=== PATIENT | male | born 1950 | race Caucasian/White ===

== ENCOUNTER 2016-08-24 11:01 | Inpatient (IN) | payer MEDICARE, OTHER ==
[~2016-08-24] VITALS: Ht 180.3 cm; Wt 126.2 kg
[2016-08-24] MEDS ORDERED: MECLIZINE 25 MG TABLET PO ONE (11:30)
[2016-08-24] MEDS ORDERED: IV NORMAL SALINE 500ML 500 ML IV ONE (11:45)
[2016-08-24 12:06] LABS: BASO # 0.1 x10^3/uL (0.0-0.2); BASO % 2 % (0-3); EOS # 0.2 x10^3/uL (0.0-0.7); EOS % 3 % (0-3); HEMATOCRIT 44.2 % (39.0-53.0); LYMPH # 1.7 x10^3/uL (1.0-4.8); LYMPH % 25 % (24-48); MEAN CORPUSCULAR HEMOGLOBIN 31 pg (25-35); MEAN CORPUSCULAR HGB CONC 34 g/dL (31-37); MEAN CORPUSCULAR VOLUME 90 fL (79-100); MONO # 0.5 x10^3/uL (0.0-1.1); MONO % 7 % (0-9); NEUT # 4.2 x10^3uL (1.8-7.7); NEUT % 62 % (31-73); PLATELET COUNT 240 x10^3/uL (140-400); RED CELL DISTRIBUTION WIDTH 13.5 % (11.5-14.5); WHITE BLOOD COUNT 6.9 x10^3/uL (4.0-11.0)
[2016-08-24 12:13] LABS: ALBUMIN 3.7 g/dL (3.4-5.0); CREATININE 1.1 mg/dL (0.7-1.3); GFR 67.2; TOTAL BILIRUBIN 0.5 mg/dL (0.2-1.0)
[2016-08-24 12:14] LABS: DIRECT BILIRUBIN 0.1 mg/dL (0.0-0.2)
--- NOTE | 2016-08-24 12:32 | RAD ---
Indication: Dizziness. Time of exam 12:27 PM Comparison is made with prior chest from 02/19/2015. FINDINGS: The heart size is normal. The lungs are clear. No pleural effusion or pneumothorax is identified. The pulmonary vascularity is normal. IMPRESSION: No acute abnormality detected.
--- NOTE | 2016-08-24 13:18 | EKG ---
[address] [address] Test Date: 2016-08-24 Test Time: 12:01:41 Pat Name: TERI PETTY Department: Room: Gender: M [employer]izer: RDAHA : 1950 Requested By: ELEAZAR COREY Order Number: [id number] Reading MD: Paresh Brandon Measurements Intervals [place] Rate: 66 P: 45 UT: 206 QRS: 73 QRSD: 96 T: 26 QT: 446 QTc: 469 Interpretive Statements SINUS RHYTHM Electronically Signed On 08-30-2016 9:08:03 CDT by Paresh Brandon
--- NOTE | 2016-08-24 13:19 | PHYS DOC ---
Adult General Chief Complaint Chief Complaint: NAUSEA/VOMITING/DIARRHEA HPI HPI 66-year-old male presenting to the emergency department after reported feeling lightheaded and vertiginous while he was sitting in the chair earlier this morning around 8:00. He reports it happened all of a sudden. His was there with him and she stated that he appeared to be diaphoretic and pale. This lasted approximately 2-3 minutes and then he began to feel better. Afterwards he did notice some vertigo with changes of movement. He reports having a history of a "arrhythmia". He does not remember what the condition was called. He denies a headache or numbness weakness or tingling. He denies facial droop or weakness of his extremities. He denies vision changes. Review of systems is negative for shortness of breath chest pain off the patient 's abdominal pain. He denies fevers or chills. All other review of systems is negative unless otherwise noted in history of present illness. Review of Systems Review of Systems SEE ABOVE. Current Medications Current Medications Current Medications Medications (Trade) Dose Ordered Sig/Silas Start Time Stop Time Status Last Admin Dose Admin Meclizine HCl (Antivert) 25 mg 1X ONCE 08/24/16 11:30 08/24/16 12:11 DC 08/24/16 12:15 25 MG Sodium Chloride 500 ml @ 0 mls/hr 1X ONCE 08/24/16 11:45 08/24/16 12:11 DC 08/24/16 12:15 500 MLS/HR Allergies Allergies Allergies Coded Allergies Type Severity Reaction Last Updated Verified No Known Drug Allergies 08/24/16 No Physical Exam Physical Exam Constitutional: Well developed, well nourished, no acute distress, non-toxic appearance. HENT: Normocephalic, atraumatic, bilateral external ears normal, oropharynx moist, no oral exudates, nose normal. [] Eyes: PERRLA, EOMI, conjunctiva normal, no discharge. Neck: Normal range of motion, no tenderness, supple, no stridor. Cardiovascular:Heart rate regular rhythm, no murmur [] Lungs & Thorax: Bilateral breath sounds clear to auscultation Abdomen: Bowel sounds normal, soft, no tenderness, no masses, no pulsatile masses. Skin: Warm, dry, no erythema, no rash. [] Back: No tenderness, no CVA tenderness. Extremities: No tenderness, no cyanosis, no clubbing, ROM intact, no edema. [] Neurologic: Alert and oriented X 3, normal motor function, normal sensory function, no focal deficits noted. Psychologic: Affect normal, judgement normal, mood normal. [] Current Patient Data Lab Results Laboratory Tests Test 08/24/16 11:48 White Blood Count 6.9 x10^3/uL (4.0-11.0) Red Blood Count 4.90 x10^6/uL (4.30-5.70) Hemoglobin 15.0 g/dL (13.0-17.5) Hematocrit 44.2 % (39.0-53.0) Mean Corpuscular Volume 90 fL (79-100) Mean Corpuscular Hemoglobin 31 pg (25-35) Mean Corpuscular Hemoglobin Concent 34 g/dL (31-37) Red Cell Distribution Width 13.5 % (11.5-14.5) Platelet Count 240 x10^3/uL (140-400) Neutrophils (%) (Auto) 62 % (31-73) Lymphocytes (%) (Auto) 25 % (24-48) Monocytes (%) (Auto) 7 % (0-9) Eosinophils (%) (Auto) 3 % (0-3) Basophils (%) (Auto) 2 % (0-3) Neutrophils # (Auto) 4.2 x10^3uL (1.8-7.7) Lymphocytes # (Auto) 1.7 x10^3/uL (1.0-4.8) Monocytes # (Auto) 0.5 x10^3/uL (0.0-1.1) Eosinophils # (Auto) 0.2 x10^3/uL (0.0-0.7) Basophils # (Auto) 0.1 x10^3/uL (0.0-0.2) Sodium Level 140 mmol/L (136-145) Potassium Level 4.0 mmol/L (3.5-5.1) Chloride Level 105 mmol/L (98-107) Carbon Dioxide Level 28 mmol/L (21-32) Anion Gap 7 (6-14) Blood Urea Nitrogen 23 mg/dL (8-26) Creatinine 1.1 mg/dL (0.7-1.3) Estimated GFR (Cockcroft-Gault) 67.2 Glucose Level 166 mg/dL (70-99) H Lactic Acid Level 2.1 mmol/L (0.4-2.0) H Calcium Level 9.0 mg/dL (8.5-10.1) Total Bilirubin 0.5 mg/dL (0.2-1.0) Direct Bilirubin 0.1 mg/dL (0.0-0.2) Aspartate Amino Transferase (AST) 25 U/L (15-37) Alanine Aminotransferase (ALT) 35 U/L (16-63) Alkaline Phosphatase 96 U/L (46-116) Troponin I Quantitative < 0.017 ng/mL (0-0.055) Total Protein 8.0 g/dL (6.4-8.2) Albumin 3.7 g/dL (3.4-5.0) Lipase 146 U/L (73-393) EKG EKG [] Radiology/Procedures Radiology/Procedures [] Course & Med Decision Making Course & Med Decision Making Pertinent Labs and Imaging studies reviewed. (See chart for details) [] 66-year-old gentleman presenting to the emergency department with a sudden episode of lightheadedness and vertigo with diaphoresis and pallor witnessed by his . He spontaneously began to feel better and then presenting to our emergency department fairly asymptomatic. Currently he denies any pain and he denied any pain during the episode. Initial vital signs show that he was mildly hypertensive however he was vomiting during that episode. His blood pressure improved without intervention in the emergency department. IV established. Saline given. EKG, Mildly prolonged [place] interval. Otherwise ST segments congruent. Chest x-ray unremarkable. Blood work showed a mildly elevated lactic acidosis. The patient currently does not have clinical signs of infection so this is likely related to his event. Otherwise troponin negative and the remainder is blood work was largely unremarkable. Given the history of arrhythmia and the suddenness of the event, the patient was admitted for telemetry monitoring and further evaluation workup and care. Dragon Disclaimer Dragon Disclaimer This chart was dictated in whole or in part using Voice Recognition software in a busy, high-work load, and often noisy Emergency Department environment. It may contain unintended and wholly unrecognized errors or omissions. Departure Departure: Impression: Primary Impression: Nausea Additional Impressions: Dizziness Lightheadedness Diaphoresis Disposition: ADMITTED INPATIENT Admitting Physician: Balaji, Ahmed Condition: STABLE Referrals: RANDY AVELAR MD (PCP) Problem Qualifiers ELEAZAR COREY MD August 24, 2016 13:19
--- NOTE | 2016-08-24 14:23 | ACF ---
Admission Criteria Forms Admission Criteria Met?: No ABELARDO KOVACS August 24, 2016 14:23 ELEAZAR COREY MD August 29, 2016 18:32
[2016-08-24] MEDS ORDERED: ONDANSETRON PF 4 MG/2 ML VIAL. IV PRN (14:30)
[2016-08-24] MEDS ORDERED: MORPHINE SULFATE 2 MG/ML DISP.SYRIN. IV PRN (14:30)
[2016-08-24 14:55] VITALS: BP 143/71
[2016-08-24 15:39] VITALS: BP 143/71
[2016-08-24 17:36] LABS: CLARITY,URINE CLEAR; COLOR,URINE YELLOW
[2016-08-24 17:37] LABS: BACTERIA,URINE 0 /HPF (0-FEW); BILIRUBIN,URINE NEG (NEG); GLUCOSE,URINE NEG (NEG); NITRITE,URINE NEG (NEG); RBC,URINE 0 /HPF (0-2); SQUAMOUS EPITHELIAL CELL,UR OCC /LPF; UROBILINOGEN,URINE 0.2 mg/dL (0.2 mg/dL); WBC,URINE OCC /HPF (0-4)
[2016-08-24 17:41] VITALS: BP 132/62
--- NOTE | 2016-08-24 19:32 | HP ---
ADMIT DATE: 08/24/2016 HISTORY OF PRESENT ILLNESS: The patient is a 66-year-old male patient, who came to the Emergency Room complaining of feeling lightheaded and vertiginous while he was sitting in the chair earlier this morning around 8 a.m. The worst happened all of a sudden. His was there with him. She stated that he appeared to be diaphoretic and pale. This lasted approximately 2-3 minutes and then he began to feel better. Afterwards, she did notice some vertigo with change in movement. He reports having history of arrhythmia. He does not remember what the condition was called. He denies any headache, numbness, weakness, or tingling or any facial droop or weakness in extremities. Denied any vision change. He was investigated in the Emergency Room. His lab work initially showed slightly elevated lactic acid. His chest x-ray was unremarkable, and a decision was made to admit him to the ICU to monitor his heart closely and consult the cardiology as well as the Neurology team. PAST MEDICAL HISTORY: Essentially unremarkable. PAST SURGICAL HISTORY: Remarkable only for colonoscopy. ALLERGIES: He has no known drug allergies. MEDICATIONS: He is currently on multivitamins. He is not on any prescription medication. FAMILY HISTORY: He has one older brother and older sisters that are healthy, one younger sister with breast cancer. His father at age of 77 because of leukemia. His mother at age of 91, but she does have a history of colon cancer. SOCIAL HISTORY: He is apparently single, lives with his significant other. He does not smoke, drink alcohol, or use recreational drugs. He is currently retired. REVIEW OF SYSTEMS: The patient denied any blurring of vision, cataract, glaucoma, or macular degeneration. Denied any earache, tinnitus, or sensorineural deafness. Denied any nosebleeds, stuffy nose, or postnasal drip. Denied any sore throat, sore tongue, toothache, hoarseness of voice, or difficulty swallowing. Denied any definitive nauseous and no vomiting. Denied any diarrhea or constipation. Denied any hematemesis, melena, or hematochezia. Denied any dysuria, frequency, or hematuria. Denied any chest pain, shortness of breath, orthopnea, or paroxysmal nocturnal dyspnea. Denied any cough, phlegm, or hemoptysis. Did complain of dizziness and lightheadedness as well as vertigo. PHYSICAL EXAMINATION: GENERAL: On examining him, he looked well and was clearly in no apparent respiratory distress, slightly pale, but no jaundice, cyanosis, or thyromegaly. No jugular venous distention. No limb edema. VITAL SIGNS: His heart rate was 66, blood pressure 143/71, temperature was 98.7, respiratory rate was 20, and oxygen saturation was 99%. HEAD, EYES, EARS, NOSE, THROAT: Showed normocephalic, atraumatic. NECK: Supple. HEART: Showed normal first and second heart sounds. No gallop, rub, or murmur. CHEST: Clear to auscultation. No crepitation or rhonchi. ABDOMEN: Distended. soft, nontender. No guarding or rigidity. No organomegaly. Hernial orifices intact. Bowel sounds normal. NEUROLOGIC: He was awake, alert, responding appropriately. Cranial nerves intact. EXTREMITIES: He moves extremities without difficulty. He has definitely no nystagmus. LABORATORY DATA: Showed a white cell count of 6900, hemoglobin 15, hematocrit 44, MCV 90 and platelet count 240,000. Serum sodium 140, potassium 4, chloride 105, bicarbonate 28, anion gap of 7, BUN 23, creatinine 1.1. Estimated GFR was 67 mL per minute, his glucose was 66, lactic acid was 2.1, calcium was 9. Total bilirubin, AST, ALT, alkaline phosphatase were normal. His total protein was 8, albumin was 3.7, lipase 146. His first set of cardiac enzymes show troponin to be less than 0.017. His EKG showed mildly prolonged [place] interval, otherwise ST segment congruent. His chest x-ray showed that the heart size is normal. The lungs are clear. No pleural effusion or pneumothorax identified. The pulmonary vascularity is normal. PLAN: To do 2 more sets of cardiac enzymes. Check fasting lipid profile tomorrow. Consult the cardiology given history of arrhythmia and also Dr. Perez for possible acute labyrinthitis versus benign positional vertigo. JAVID CULP MD DR: CARLOS/iona JOB#: [id number] / [id number]
[2016-08-24 19:33] VITALS: BP 102/62
[2016-08-25 02:00] VITALS: BP 106/55
[2016-08-25 02:10] LABS: BASO # 0.1 x10^3/uL (0.0-0.2); BASO % 1 % (0-3); EOS # 0.2 x10^3/uL (0.0-0.7); EOS % 3 % (0-3); HEMATOCRIT 40.5 % (39.0-53.0); HEMOGLOBIN 13.9 g/dL (13.0-17.5); LYMPH # 2.7 x10^3/uL (1.0-4.8); LYMPH % 32 % (24-48); MEAN CORPUSCULAR HEMOGLOBIN 31 pg (25-35); MEAN CORPUSCULAR HGB CONC 34 g/dL (31-37); MEAN CORPUSCULAR VOLUME 89 fL (79-100); MONO # 0.7 x10^3/uL (0.0-1.1); MONO % 9 % (0-9); NEUT # 4.7 x10^3uL (1.8-7.7); NEUT % 55 % (31-73); PLATELET COUNT 224 x10^3/uL (140-400); RED BLOOD COUNT 4.54 x10^6/uL (4.30-5.70); RED CELL DISTRIBUTION WIDTH 13.3 % (11.5-14.5); WHITE BLOOD COUNT 8.5 x10^3/uL (4.0-11.0)
[2016-08-25 02:21] LABS: CALCIUM 8.7 mg/dL (8.5-10.1); CREATININE 1.1 mg/dL (0.7-1.3); GFR 67.2; POTASSIUM 4.1 mmol/L (3.5-5.1)
--- NOTE | 2016-08-25 04:32 | CONS ---
DATE OF CONSULTATION: 08/24/2016 REFERRING PHYSICIAN: Dr. Carpio. REASON FOR CONSULTATION: Dizziness. HISTORY OF PRESENT ILLNESS: This is a 66-year-old right-handed white male, who was admitted to Emergency Room after he presented with sudden onset of dizziness described as vertigo. According to the patient, he woke up this morning and he had all of his cereal soon after he felt nauseated with diaphoresis and paleness. He sat down for a few minutes and he got better, but later on after he got up, he felt dizzy and spinning. He went back to sit down and he felt better really after he lied down flat. He did vomit once, but he denies headaches, visual disturbances, chest pain, shortness of breath or palpitation, dysarthria, dysphagia, weakness or paresthesia. The patient had a history of cardiac arrhythmias, but complete workup done by local contract runner did not reveal any etiology. He was not placed on any antiarrhythmic medications. The patient denies any other medical or neurological complaints. Since admission, he has been taking meclizine on p.r.n. and now he denies any new neurological symptoms. PAST MEDICAL HISTORY: Positive for cardiac arrhythmia with negative cardiac workup. SOCIAL HISTORY: The patient lives with his girlfriend. He is retired. He denies smoking, alcohol drinking, or illicit drug use. The patient usually does exercises 20 minutes daily. FAMILY HISTORY: Positive for colon cancer. CURRENT MEDICATIONS AND HOSPITAL MEDICATIONS: Includes Zofran IV p.r.n. q. 4 hours p.r.n. for nausea and morphine 2 mg q. 2 hours intravenously p.r.n. ALLERGIES: No known drug allergies. CURRENT HOME MEDICATIONS: None. PHYSICAL EXAMINATION: GENERAL: Well-developed, well-nourished white male, not in acute distress. Moderately obese white male, not in acute distress. VITAL SIGNS: He weighs 276 pounds with BMI of 38.2. Blood pressure 132/62, respiratory rate 25, pulse is 75 and regular, temperature 98.7, oxygen saturation is 99% on room air. HEENT: Normocephalic, atraumatic, otherwise, unremarkable. NECK: Supple. Negative for carotid bruit, lymphadenopathy, thyromegaly or JVD. LUNGS: Clear to A and P. CARDIOVASCULAR: Regular rate and rhythm, normal S1, S2. There is no S3, S4 or murmur. ABDOMEN: Soft. Bowel sounds positive. EXTREMITIES: Negative for cyanosis, clubbing or pitting edema. NEUROLOGIC: MENTAL STATUS: The patient is alert and oriented x 3. Speech is fluent. There is no language dysfunctions. Memory, judgment, and abstract thinking are normal. The patient denies hallucination or delusion. CRANIAL NERVES: Visual garcia are full. The pupils are reactive to light and accommodation. The extraocular movements are intact. Palate intact. There is no nystagmus. There is no facial motor or sensory deficit. Hearing is probably slightly diminished on the left side, otherwise, unremarkable. The palate is elevated symmetrically. Sternocleidomastoid muscles are powerful bilaterally. The patient shrugs his shoulders symmetrically, protrudes his tongue in the midline without fasciculation or atrophy. MOTOR: No focal muscle bulk was seen. The tone is normal. The strength is 5/5 throughout. Sensory examination revealed normal pinprick, light touch, vibratory and position senses. Deep tendon reflexes were symmetric and active without pathologic responses. Gait and coordination are normal. DIAGNOSTIC DATA: Chest x-ray revealed no evidence of acute abnormalities. LABORATORY DATA: CBC revealed white blood cells of 6.9 thousand, hemoglobin 15, hematocrit 44.2, platelet count 240,000. Chemistry revealed sodium of 140, potassium 4, chloride 105, CO2 28, BUN 23, creatinine 1.2, glucose 166, lactic acid 1.6. Liver enzymes are normal. Lipase is normal. Troponin level less than 0.017. Urinalysis is negative for urinary tract infections. IMPRESSION: 1. Acute onset of vertigo, which is aggravated by changing his body or head quickly. 2. Paroxysmal benign positional vertigo versus vestibulitis and paroxysmal cardiac arrhythmia, possibility of his symptoms. 3. History of cardiac arrhythmia with regular sinus rhythm at this time. RECOMMENDATIONS: 1. Continue with bed rest and increase activity slowly. 2. Make sure the patient has adequate hydration. 3. Continue with meclizine on a p.r.n. basis. 4. Benign paroxysmal positional vertigo, vestibular exercise may alleviate the symptoms. M Idalmis HIGGINS MD DR: JOSE/iona JOB#: [id number] / [id number]
[2016-08-25 05:16] VITALS: BP 133/71
[2016-08-25] MEDS ORDERED: MECLIZINE 12.5 MG TABLET. PO PRN (07:00)
--- NOTE | 2016-08-25 09:00 | PDOC2 ---
CONSULT Date of Admission DATE: 08/25/16 TIME: 08:57 Reason for Consult: dizziness, hx of arrhythmia Problem List Problems Medical Problems: (1) Diaphoresis Status: Acute (2) Dizziness Status: Acute (3) Lightheadedness Status: Acute (4) Nausea Status: Acute History of Present Illness Mr Bello is a 66 year old male who presented yesterday with complaints of sudden onset extreme lightheadedness and dizziness with associated nausea and vomiting. His symptoms started while he was sitting in his recliner not too long after eating. Symptoms started with nausea and his significant other reports he became very pale. He then experienced lightheadedness with visual problems he describes as turning his head but visual field lagging behind. He reports symptoms increased with standing up and moving. He says movement in the car while driving here also significantly increased his symptoms. He denies chest discomfort, dyspnea or palpitations. He denies syncope. He denies any prior similar symptoms. No recent illnesses, no fever or chills. He denies congestive symptoms. He reports some dyspnea on exertion with walking up hills but says this in not new or increased recently. He does state he had a cardiac workup by Dr Perales around 2-3 years ago and was told he had some kind of arrhythmia that was not significant but if progressed they would discuss pacemaker. He is currently symptom free. Past Medical History unremarkable Past Surgical History unremarkable Family History breast and colon cancer as well as leukemia, no significant reported cardiac history Social History retired, non smoker, no significant ETOH, no illicit drugs Current Medications Current Medications Sodium Chloride 500 ml @ 0 mls/hr 1X ONCE IV Last administered on 08/24/16 12: 15; Start 08/24/16 at 11:45; Stop 08/24/16 at 12:11; Status DC Meclizine HCl (Antivert) 25 mg 1X ONCE PO Last administered on 08/24/16 12:15 ; Start 08/24/16 at 11:30; Stop 08/24/16 at 12:11; Status DC Ondansetron HCl (Zofran) 4 mg PRN Q4HRS PRN IV NAUSEA/VOMITING; Start 08/24/16 at 14:30; Stop 08/25/16 at 14:29 Morphine Sulfate (Morphine 2mg Syringe) 2 mg PRN Q2HR PRN IV PAIN; Start at 14:30; Stop 08/25/16 at 14:29 Meclizine HCl (Antivert) 12.5 mg PRN Q6HRS PRN PO DIZZINESS; Start 08/25/16 at 07:00 Active Scripts Active Reported No Known Medications Prior To Admisstion (Info) Each 1 Each Allergies: Coded Allergies: No Known Drug Allergies (Unverified , 08/24/16) Review of System as per HPI General: Alert, Oriented X3, Cooperative, No acute distress HEENT: Atraumatic, EOMI, Mucous membr. moist/pink Lungs: Clear to auscultation, Normal air movement Heart: Regular rate, Normal S1, Normal S2, Other (no gallops, clicks or rubs, no obvious murmurs) Abdomen: Normal bowel sounds, Soft, No tenderness Extremities: No cyanosis, No edema, Normal pulses Neuro: Normal speech, Strength at 5/5 X4 ext Psych/Mental Status: Mental status NL, Mood NL VITALS Vital Signs Date Time Temp Pulse Resp B/P (MAP) Pulse Ox O2 Delivery O2 Flow Rate FiO2 08/25/16 07:42 Room Air 08/25/16 05:16 97.7 67 16 133/71 (91) 97 Labs Laboratory Tests Test 08/24/16 11:48 08/24/16 15:28 08/24/16 15:56 08/24/16 17:00 White Blood Count 6.9 x10^3/uL (4.0-11.0) Red Blood Count 4.90 x10^6/uL (4.30-5.70) Hemoglobin 15.0 g/dL (13.0-17.5) Hematocrit 44.2 % (39.0-53.0) Mean Corpuscular Volume 90 fL (79-100) Mean Corpuscular Hemoglobin 31 pg (25-35) Mean Corpuscular Hemoglobin Concent 34 g/dL (31-37) Red Cell Distribution Width 13.5 % (11.5-14.5) Platelet Count 240 x10^3/uL (140-400) Neutrophils (%) (Auto) 62 % (31-73) Lymphocytes (%) (Auto) 25 % (24-48) Monocytes (%) (Auto) 7 % (0-9) Eosinophils (%) (Auto) 3 % (0-3) Basophils (%) (Auto) 2 % (0-3) Neutrophils # (Auto) 4.2 x10^3uL (1.8-7.7) Lymphocytes # (Auto) 1.7 x10^3/uL (1.0-4.8) Monocytes # (Auto) 0.5 x10^3/uL (0.0-1.1) Eosinophils # (Auto) 0.2 x10^3/uL (0.0-0.7) Basophils # (Auto) 0.1 x10^3/uL (0.0-0.2) Sodium Level 140 mmol/L (136-145) Potassium Level 4.0 mmol/L (3.5-5.1) Chloride Level 105 mmol/L (98-107) Carbon Dioxide Level 28 mmol/L (21-32) Anion Gap 7 (6-14) Blood Urea Nitrogen 23 mg/dL (8-26) Creatinine 1.1 mg/dL (0.7-1.3) Estimated GFR (Cockcroft-Gault) 67.2 Glucose Level 166 mg/dL (70-99) Lactic Acid Level 2.1 mmol/L (0.4-2.0) 1.6 mmol/L (0.4-2.0) Calcium Level 9.0 mg/dL (8.5-10.1) Total Bilirubin 0.5 mg/dL (0.2-1.0) Direct Bilirubin 0.1 mg/dL (0.0-0.2) Aspartate Amino Transf (AST/SGOT) 25 U/L (15-37) Alanine Aminotransferase (ALT/SGPT) 35 U/L (16-63) Alkaline Phosphatase 96 U/L (46-116) Troponin I Quantitative < 0.017 ng/mL (0-0.055) Total Protein 8.0 g/dL (6.4-8.2) Albumin 3.7 g/dL (3.4-5.0) Lipase 146 U/L (73-393) Nasal Screen MRSA (PCR) Negative (Negative) Urine Collection Type Unknown Urine Color Yellow Urine Clarity Clear Urine pH 6.0 Urine Specific Hext 1.010 Urine Protein Neg (NEG-TRACE) Urine Glucose (UA) Neg mg/dL (NEG) Urine Ketones (Stick) Neg mg/dL (NEG) Urine Blood Neg (NEG) Urine Nitrite Neg (NEG) Urine Bilirubin Neg (NEG) Urine Urobilinogen Dipstick 0.2 mg/dL (0.2 mg/dL) Urine Leukocyte Esterase Neg (NEG) Urine RBC 0 /HPF (0-2) Urine WBC Occ /HPF (0-4) Urine Squamous Epithelial Cells Occ /LPF Urine Bacteria 0 /HPF (0-FEW) Test 08/24/16 19:18 08/25/16 01:55 Troponin I Quantitative < 0.017 ng/mL (0-0.055) < 0.017 ng/mL (0-0.055) White Blood Count 8.5 x10^3/uL (4.0-11.0) Red Blood Count 4.54 x10^6/uL (4.30-5.70) Hemoglobin 13.9 g/dL (13.0-17.5) Hematocrit 40.5 % (39.0-53.0) Mean Corpuscular Volume 89 fL (79-100) Mean Corpuscular Hemoglobin 31 pg (25-35) Mean Corpuscular Hemoglobin Concent 34 g/dL (31-37) Red Cell Distribution Width 13.3 % (11.5-14.5) Platelet Count 224 x10^3/uL (140-400) Neutrophils (%) (Auto) 55 % (31-73) Lymphocytes (%) (Auto) 32 % (24-48) Monocytes (%) (Auto) 9 % (0-9) Eosinophils (%) (Auto) 3 % (0-3) Basophils (%) (Auto) 1 % (0-3) Neutrophils # (Auto) 4.7 x10^3uL (1.8-7.7) Lymphocytes # (Auto) 2.7 x10^3/uL (1.0-4.8) Monocytes # (Auto) 0.7 x10^3/uL (0.0-1.1) Eosinophils # (Auto) 0.2 x10^3/uL (0.0-0.7) Basophils # (Auto) 0.1 x10^3/uL (0.0-0.2) Sodium Level 142 mmol/L (136-145) Potassium Level 4.1 mmol/L (3.5-5.1) Chloride Level 106 mmol/L (98-107) Carbon Dioxide Level 29 mmol/L (21-32) Anion Gap 7 (6-14) Blood Urea Nitrogen 16 mg/dL (8-26) Creatinine 1.1 mg/dL (0.7-1.3) Estimated GFR (Cockcroft-Gault) 67.2 Glucose Level 100 mg/dL (70-99) Calcium Level 8.7 mg/dL (8.5-10.1) Images EKG - sinus rhythm, LAFB, 1st degree AVB CXR - IMPRESSION: No acute abnormality detected. Assessment/Plan 1. dizziness most consistent with vertigo - check orthostatics, carotid duplex 2. history of arrhythmia - long 1st degree AVB noted on EKG, transient and no longer present on tele. Occasional PVCs noted without runs. Suggest echo and outpatient event monitoring. Problems: AYDEN BERG APRN August 25, 2016 09:00
--- NOTE | 2016-08-25 10:12 | PN ---
DATE: 08/25/2016 SUBJECTIVE: The patient denies any new medical or neurological complaints. He denies headaches, vertigo, chest pain, shortness of breath or palpitations. The patient does not require any meclizine since admission. OBJECTIVE: GENERAL: Obese white male, not in acute distress. VITAL SIGNS: Blood pressure 133/71, respiratory rate 16, pulse 67 and regular, temperature 97.7, oxygen saturation 97% on room air. HEENT: Normocephalic, atraumatic, otherwise unremarkable. NECK: Supple. Negative for carotid bruit, lymphadenopathy or thyromegaly. LUNGS: Clear to A and P. CARDIOVASCULAR: Regular rate and rhythm, normal S1, S2. There is no S3, S4 or murmur. ABDOMEN: Soft. Bowel sounds positive. EXTREMITIES: Negative for cyanosis, clubbing or pitting edema. NEUROLOGIC: Normal mental status and intact cranial nerves. There is no nystagmus. There is no focal motor or sensory deficit. Deep tendon reflexes are symmetric and active without pathologic responses. Gait and coordination are normal. LABORATORY DATA: CBC revealed white blood cells of 8.5 , hemoglobin 13.9, hematocrit 40.5, platelet count 224,000. Chemistry revealed sodium of 142, potassium 4.1, chloride 106, CO2 29, BUN 16, creatinine 1.1, glucose 100, and calcium 8.7. IMPRESSION: 1. Paroxysmal benign vertigo -- resolved. 2. Rule out cardiac arrhythmia. RECOMMENDATIONS: The patient has been on Holter monitor. He will be seen by a metabolic specialist today. Neurologically the patient is stable and improved. No further recommendations from neurologic standpoint. M Idalmis HIGGINS MD DR: JOSE/iona JOB#: [id number] / [id number]
[2016-08-25 11:04] VITALS: BP 124/55
--- NOTE | 2016-08-25 12:10 | CARD ---
APPROVED REPORT EXAM: Two-dimensional and M-mode echocardiogram with Doppler and color Doppler. Other Information Quality : Technically Limited Rhythm : NSRTechnically limited study due to body habitus. INDICATION Dizziness and Vertigo Arrhythmia 2D DIMENSIONS RVDd3.9 (2.9-3.5cm)Left Atrium(2D)3.4 (1.6-4.0cm) IVSd1.1 (0.7-1.1cm)Aortic Root(2D)3.2 (2.0-3.7cm) LVDd4.1 (3.9-5.9cm)LVOT Diameter2.1 (1.8-2.4cm) PWd1.1 (0.7-1.1cm)LVDs2.7 (2.5-4.0cm) FS (%) 34.4 %SV46.6 ml LVEF(%)64.0 (>50%) Aortic Valve AoV Peak Nikita.112.9cm/sAoV VTI25.5cm AO Peak GR.5.1mmHgLVOT Peak Nikita.102.0cm/s LVOT VTI 22.82cmAO Mean GR.3mmHg DONNY (VMAX)3.22ua8FMG (VTI)3.08cm2 Mitral Valve MV E Udcufknu49.2cm/sMV DECEL [id number] MV A Evwykvst94.3cm/sE/A Ratio1.0 MV A Nrrltvua309pi LEFT VENTRICLE The left ventricle is normal size. There is normal left ventricular wall thickness. Left ventricle sy stolic function is normal. The Ejection Fraction is 60-65%. There is normal LV segmental wall motion. There is no ventricular septal defect visualized. RIGHT VENTRICLE The right ventricle is normal size. The right ventricular systolic function is normal. ATRIA The left atrium size is normal. The right atrium size is normal. The interatrial septum is intact wit h no evidence for an atrial septal defect or patent foramen ovale as noted on 2-D or Doppler imaging. AORTIC VALVE The aortic valve is normal in structure and function. The aortic valve is trileaflet. Doppler and Col or Flow revealed no significant aortic regurgitation. There is no significant aortic valvular stenosi s. MITRAL VALVE The mitral valve is normal in structure and function. There is no mitral valve stenosis. Doppler and Color Flow revealed no mitral valve regurgitation noted. TRICUSPID VALVE The tricuspid valve is normal in structure and function. Doppler and Color Flow revealed no tricuspid valve regurgitation noted. Unable to assess PA pressure. There is no tricuspid valve stenosis. PULMONIC VALVE The pulmonic valve is not well visualized. Doppler and Color Flow revealed no pulmonic valvular regur gitation. There is no pulmonic valvular stenosis. GREAT VESSELS The aortic root is normal in size. Pulmonary veins not recorded. The IVC was not visualized. PERICARDIAL EFFUSION There is no pleural effusion. There is no evidence of significant pericardial effusion. Critical Notification Critical Value: No <Conclusion> Left ventricle systolic function is normal. The Ejection Fraction is 60-65%. There is normal LV segmental wall motion.
--- NOTE | 2016-08-25 12:31 | EKG ---
[address] [address] Test Date: 2016-08-25 Test Time: 10:04:51 Pat Name: ETRI PETTY Department: Room: [facility]04 1 Gender: M Unpaid Intern: GORGE : 1950 Requested By: AYDEN BERG Order Number: [id number] Reading MD: Paresh Brandon Measurements Intervals Sterling Rate: 72 P: 42 OR: 198 QRS: 26 QRSD: 94 T: 22 QT: 428 QTc: 470 Interpretive Statements SINUS RHYTHM NON-SPECIFIC ST/T CHANGES Electronically Signed On 08-30-2016 9:17:25 CDT by Paresh Brandon
[2016-08-25] MEDS ORDERED: MECL25TA3 PO (14:30)
--- NOTE | 2016-08-26 09:40 | DS ---
DATE OF DISCHARGE: 08/25/2016 HOSPITAL COURSE: The patient is a 66-year-old male patient who basically came complaining of sudden onset of dizziness described as vertigo that happened after he woke up and ate his cereals and he felt nauseated with diaphoresis and paleness, sat down for a few minutes and he got better, but later on he got up, he felt dizzy and with spinning surrounding. He did vomit once, but he denies any headache, visual disturbances, chest pain, was given meclizine and was admitted for observation and was seen by Dr. Perez and the Cardiology team. He has had no further episodes while in the hospital; however, and has had an echocardiogram done, which showed that his left ventricular systolic function is normal, ejection fraction 60-65% with normal left ventricular segmental wall motion and a decision was made to discharge him home on meclizine with the plan to email Holter monitor for him for evaluation of his cardiac arrhythmias. PHYSICAL EXAMINATION: GENERAL: When I saw him this afternoon, he looked well and was clearly in no apparent respiratory distress, pale, but no jaundice, cyanosis, or thyromegaly. No jugular distension, no limb edema. VITAL SIGNS: His heart rate was 70, blood pressure 124/55, temperature was 98.3, respiratory rate was 14 and oxygen saturation was 97%. HEAD, EYES, EARS, NOSE AND THROAT: Showed normocephalic, atraumatic. NECK: Supple. HEART: Showed normal first and second heart sounds with no gallop, rub or murmur. CHEST: Clear to auscultation. No crepitation or rhonchi. ABDOMEN: Distended, soft, nontender. No guarding or rigidity. No organomegaly. Hernial orifices intact. Bowel sounds normal. NEUROLOGIC: He is awake, alert, responding appropriately. He is up and about walking without assistance or assistive devices. LABORATORY DATA: His lab work this morning showed a white cell count of 8500, hemoglobin 14, hematocrit 41, MCV 89 and platelet count of 224,000. His chemistry showed a serum sodium 142, potassium 4.1, chloride 106, bicarbonate 29, anion gap of 7, BUN 16, creatinine 1, estimated GFR was 67 mL per minute. His glucose was 100, calcium was 8.7. He has 3 sets of cardiac enzymes that were all negative. Serum triglycerides were 103, total cholesterol 160, LDL cholesterol was 97, VLDL was 20, the HDL cholesterol was 43 and ratio was 3. The patient was discharged, continue with meclizine 25 mg 3 times a day. FINAL DISCHARGE DIAGNOSES: 1. Benign paroxysmal positional vertigo. 2. Cardiac arrhythmias with negative cardiac workup. JAVID CULP MD DR: CARLOS/iona JOB#: [id number] / [id number]
== END 2016-08-25 15:00 | disposition home or self-care (01) | DRG 149 ==
LOC: ER 11:01 → ICU 14:25 → OBSVTOIN 15:13
PROVIDERS: ADMIT Internal Medicine; ATTEND Internal Medicine
DX: H81.10 Benign paroxysmal vertigo, unspecified ear (principal); I49.3 Ventricular premature depolarization; I49.9 Cardiac arrhythmia, unspecified; I44.0 Atrioventricular block, first degree; Z80.0 Family history of malignant neoplasm of digestive organs; Z80.3 Family history of malignant neoplasm of breast; Z80.6 Family history of leukemia
CPT/HCPCS: 36415; 71010; 80048; 80061; 80076; 81001; 83605; 83690; 84484; 85027; 87641; 93005; 93306; G0378; G0379; J7040; J8597

== ENCOUNTER → 2019-11-13 | Outpatient (CLI) | payer MEDICARE, OTHER ==
[~2019-11-13] MED LIST: ASCO500C9 PO; ASPI81TA59 PO; CHOL400T36 PO; GARL100T2 PO; MECL-75 PO; MULT-246 PO; OMEG1CAP50 PO; VITA1TAB19 PO
== END | disposition home or self-care (01) ==
LOC: LAB 13:26
PROVIDERS: ATTEND Nurse Anesthetist, Certified Registered
DX: Z01.818 Encounter for other preprocedural examination (principal); Z11.59 Encounter for screening for other viral diseases; Z86.010 Personal history of colon polyps
CPT/HCPCS: C9803; U0003; 36415

== ENCOUNTER → 2019-11-16 | Day surgery (SDC) | payer MEDICARE, OTHER ==
[~2019-11-16] MED LIST changes: +IPRATRPIUM/ALBUTEROL 0.5/2.5MG 3 ML NEBU. NEB PRN; +IV RINGERS SOLUTION,LACTATED 1,000 ML IV SCH; +MIDAZOLAM HCL PF 2 MG/2 ML VIAL. IV ONE; +ONDANSETRON PF 4 MG/2 ML VIAL. IV PRN; +PROPOFOL 10,000 MCG/ML (20ML) VIAL IV ONE
[2019-11-16 12:10] VITALS: BP 150/90
--- NOTE | 2019-11-19 18:06 | PATHOLOGY ---
[facility] Accession Number: [id number] . 01 Material submitted: . colon - DESCENDING COLON POLYPS X3. Modifiers: descending . 01 Clinical history: . History of polyps . 02 Diagnosis: Colon biopsies, descending colon polyps x3: - Hyperplastic polyps. (JPM:jose; 11/19/2019) S 11/19/2019 0942 Local . 02 Comment: There are no adenomatous changes or evidence of malignancy. (JPM:jose; 11/19/2019) . 02 Electronically signed: . Bernard Adler MD, Pathologist NPI- [id number] . 01 Gross description: . The specimen is received in formalin, labeled "Lasha Bello, descending colon polyps x3". Received are three segments of pale sevilla soft tissue ranging in size from 0.4 to 0.7 cm in maximum dimensions. The specimen is submitted entirely in cassette A1. (CAA; 11/16/2019) QA/QA 11/16/2019 1849 Local . 02 Pathologist provided ICD-10: K63.5 . 02 CPT . 919411 Specimen Comment: A courtesy copy of this report has been sent to [phone], [phone] Specimen Comment: [id number] Specimen Comment: Report sent to / DR AVELAR Performed at: 01 [facility] [address], [place] [id number] MD Sean Davenport MD Phone: [phone] Performed at: 02 [facility] [address], [place] [id number] MD Bernard Adler MD Phone: [phone]
== END | disposition home or self-care (01) ==
LOC: SURG 10:00
PROVIDERS: ATTEND Internal Medicine Gastroenterology
DX: Z12.11 Encounter for screening for malignant neoplasm of colon (principal); K63.5 Polyp of colon; K63.89 Other specified diseases of intestine; K64.0 First degree hemorrhoids; I49.9 Cardiac arrhythmia, unspecified; Z79.82 Long term (current) use of aspirin; Z79.899 Other long term (current) drug therapy; Z86.010 Personal history of colon polyps; Z85.828 Personal history of other malignant neoplasm of skin; Z98.890 Other specified postprocedural states
CPT/HCPCS: 45380; 45385; 88305; J2704; J7120; 45378

== ENCOUNTER → 2020-04-10 | Outpatient (CLI) | payer MEDICARE, OTHER ==
[2019-11-16 12:10] VITALS: BP 150/90
[~2020-04-10] MED LIST changes: -IPRATRPIUM/ALBUTEROL 0.5/2.5MG 3 ML NEBU. NEB PRN; -IV RINGERS SOLUTION,LACTATED 1,000 ML IV SCH; -MIDAZOLAM HCL PF 2 MG/2 ML VIAL. IV ONE; -ONDANSETRON PF 4 MG/2 ML VIAL. IV PRN; -PROPOFOL 10,000 MCG/ML (20ML) VIAL IV ONE
--- NOTE | 2020-04-10 10:15 | RAD ---
Three view lumbosacral spine History: Pain AP, coned-down lateral and lateral views of the lumbosacral spine were obtained. The vertebral bodies are aligned. There is no loss of vertebral body stature. There is loss of interv ertebral disc height at L3-L4. There is minimal marginal spurring at endplates at all levels. There i s sclerotic changes the facets at L4-L5 and L5-S1. Impression: Mild degenerative changes with discogenic disease and facet arthropathy. No acute finding s. End Impression Electronically signed by: Julius Cochran III, MD (04/10/2020 10:13 AM) [facility]
== END ==
LOC: DXRAD 09:48
PROVIDERS: ATTEND Family Medicine
DX: G95.89 Other specified diseases of spinal cord (principal); M54.5 Low back pain
CPT/HCPCS: 72100